=== PATIENT | male | born 1975 | race Caucasian/White ===

== ENCOUNTER → 2016-11-25 | Outpatient (CLI) | payer OTHER ==
[2016-11-25 10:25] LABS: HEMATOCRIT 41.3 % (42-52); MEAN CELL VOLUME 85.9 fL (80-100); MEAN CORPUSCULAR HEMOGLOBIN 29.3 pg (25-34); MEAN CORPUSCULAR HGB CONC 34.1 g/dl (32-36); MEAN PLATELET VOLUME 10.4 fL (7.4-10.4); PLATELET COUNT 195 K/uL (130-400); RED BLOOD COUNT 4.81 M/uL (4.7-6.1)
[2016-11-25 10:46] LABS: AST/SGOT 11 U/L (15-37); BLOOD UREA NITROGEN 11 mg/dl (7-18); BUN/CREATININE RATIO 10.2 (10-20); CALCIUM 8.5 mg/dl (8.5-10.1); CARBON DIOXIDE 28 mmol/L (21-32); CHLORIDE 108 mmol/L (98-107); GLUCOSE 86 mg/dl (70-99); HDL CHOLESTEROL 42 mg/dl; POTASSIUM 3.9 mmol/L (3.5-5.1); SODIUM 143 mmol/L (136-145)
[2016-11-25 10:52] LABS: BASOPHIL % 1.8 % (0-2); EOSINOPHIL % 0.9 %; LYMPH ABS # 2.24 K/uL (1.2-3.4); LYMPHOCYTE % 38.6 %; NEUTROPHILS % 54.3 %
[2016-11-25 10:53] LABS: ALB/GLOB RATIO 1.4 (0.9-2); ALKALINE PHOSPHATASE 63 U/L (45-117); ALT/SGPT 17 U/L (12-78); CHOLESTEROL 163 mg/dl (0-200); CHOLESTEROL/HDL RATIO 3.9; LDL CHOLESTEROL CALCULATED 106 mg/dl; TRIGLYCERIDES 77 mg/dl (0-150); VERY LOW DENSITY LIPOPROT CALC 15 mg/dl
[2016-11-25 12:20] LABS: MDIFF REQUEST Y
== END | disposition home or self-care (01) ==
LOC: C.LAB 09:20
PROVIDERS: ATTEND Family Medicine
DX: Z00.00 Encounter for general adult medical examination without abnormal findings (principal)